=== PATIENT | female | born 1950 | race Caucasian/White ===

== ENCOUNTER 2017-11-01 02:56 | Outpatient (CLI) | payer MEDICARE, BC, SELFPAY ==
[2017-11-01 10:55] LABS: ALT 37 U/L (12-78); AST 23 U/L (15-37); Alkaline Phosphatase 95 U/L (46-116); Anion Gap 9.3 mmol/L (3-11); BUN 19 mg/dL (7-18); Bilirubin, Total 1.1 mg/dL (0.2-1.0); CO2 27.7 mmol/L (21.0-32.0); Calcium 9.5 mg/dL (8.5-10.1); Chloride 105 mmol/L (98-107); Cholesterol 202 mg/dL (50-200); Glucose 87 mg/dL (70-100); HDL Cholesterol 77 mg/dL (40-60); LDL CHOLESTEROL 116 mg/dL (<100); Potassium 4.6 mmol/L (3.5-5.1); Sodium 142 mmol/L (136-145); Total Protein 7.3 g/dL (6.4-8.2); Triglyceride 55 mg/dL (30-150)
== END 2017-11-01 02:57 ==
DX: E78.2 Mixed hyperlipidemia (principal); G47.00 Insomnia, unspecified; M19.90 Unspecified osteoarthritis, unspecified site; M85.80 Other specified disorders of bone density and structure, unspecified site; N95.2 Postmenopausal atrophic vaginitis; Z85.89 Personal history of malignant neoplasm of other organs and systems
CPT/HCPCS: 36415; 80053; 80061; 83721

== ENCOUNTER 2017-12-22 00:07 | Outpatient (CLI) | payer MEDICARE, BC, SELFPAY ==
--- NOTE | 2017-12-22 10:20 | DI.MAMMO_ITS ---
SYMPTOM/DIAGNOSIS: SCREENING, Z12.31 MAMMOGRAMS: Mammograms were interpreted according to the usual protocol including computer analysis with CAD system, tomosynthesis and C view imaging. Comparison with prior examinations. Breast density B. No masses or microcalcifications are seen. There is nothing to suggest malignancy. IMPRESSION: Negative mammogram. Routine screening is recommended. Category I. MQSA ASSESSMENT OF FINDINGS: Negative. Category 1. Patient will receive a letter notifying them of these results. BI-RADS category B. There are scattered areas of fibroglandular density.
== END 2017-12-22 00:27 ==
DX: Z12.31 Encounter for screening mammogram for malignant neoplasm of breast (principal)
CPT/HCPCS: 77063; 77067

== ENCOUNTER → 2018-08-17 08:56 | Outpatient (BNVA) | payer MEDICARE, BC, SELFPAY | PROVIDERS: Visit Provider Physical Therapy Assistant | DX: Z12.11 Encounter for screening for malignant neoplasm of colon (principal); Z83.71 Family history of colonic polyps ==

== ENCOUNTER 2018-08-21 10:06 | Day surgery (SDC) | payer MEDICARE, BC, SELFPAY ==
--- NOTE | 2018-08-21 06:26 | W.COLOREPORT ---
Date of service: 08/21/18 Time of Service: 11:03 Colonoscopy Report Date of procedure: 08/21/18 Pre-op diagnosis general: Hx of polyps and screening Post-op diagnosis procedure note: same (multiple polyps) Procedure: Colonoscopy with polypectomy with cold forceps Surgeon: Rubina Spencer Anesthesia proc note operative: other (General/ ASA 2/ k[place]lee Head, SARAH) Estimated blood loss (mL): 5 Pathology: other (Ascending colon polyp x3, descending colon polyp x1) Complications: None Disposition: same day Indications: Mrs. Wesley is a pleasant 68 year old female who was seen in the office for a repeat colonoscopy. Her last colonoscopy was in 2014 and she was noted to have 2 Tubular adenomas. Risks, benefits and complications have been reviewed. Complications include but are not limited to bleeding, pain, perforation, missed small lesion/polyp, sore throat, aspiration and adverse reaction to the medications. Questions were entertained and answered to their satisfaction and they wished to proceed. No guarantees were given or implied. Prep: Miralax/Dulcolax Procedure Start Time: 11:03 Procedure End Time: 11:29 Retraction Time: 18 Findings: Sessile and pedunculated polyps in the ascending colon and one pedunculated polyp in the descedning colon. Diverticulosis also noted throughout. Procedure Description: After informed consent was obtained the patient was taken to the procedure room and placed in a left decubitous position. Monitors were applied and a time out was done. The patients name, date of , procedure, allergies to medications and metal in their body was reviewed. The patient was then sedated. Once sedated and comfortable a rectal exam was done. External exam was normal. Internal exam revealed a normal sphincter tone and no palpable masses. The scope was then introduced and retro-flexed. No internal hemorrhoids, polyps or masses were identified. The scope was then advanced to the cecum without difficulty. The TI and appendiceal orifice were identified. The prep was adequate. The scope was then slowly retracted over 18 minutes back into the rectum. Polyps were removed with cold forceps in the ascending colon x3 and in the descending colon polyp x1. Bailey-diverticulosis was also noted. The scope was removed and the patient was woken up and taken back to Same day surgery in stable condition. The patient tolerated the procedure well and there were no immediate complications. Follow up: The patient should follow up in 3-5 years unless they develop changes in bowel habits or other new gastrointestinal complaints.
--- NOTE | 2018-08-21 06:28 | W.PM.DSUDISC ---
Discharge Plan Disposition Patient Disposition: HOME Condition: Good Discharge Details Reason For Visit: SCREENING and History of colon polyps Attending Provider: Rubina Spencer Primary Care Provider: Zayra Kim Home Meds and New Rx's Prescriptions: Continued eszopiclone [Lunesta] 2 mg tablet 2 mg PO HS PRNRF: 0 Metamucil 283 GM powder 1 tbs PO DAILY RF: 0 clobetasol 0.05 % cream 1 applic TP .COMPLEX Qty: 60 RF: 2 Discontinued polyethylene glycol 3350 17 gram/dose powder 238 g PO ONCE Qty: 238 RF: 0 bisacodyl [Dulcolax (bisacodyl)] 5 mg tablet,delayed release (DR/EC) 5 mg PO ONCE Qty: 4 RF: 0 Discharge Instructions Instructions: Colonoscopy (DC), Colorectal Polyps (DC), Diverticulosis (DC) Additional Instructions: Findings: 4 polyps Diverticulosis Follow up: 3-5 years Please call if you develop: fevers >101.5 Nausea or Vomiting Abdominal pain that is not transient DAY SURGERY UNIT POST COLONOSCOPY INSTRUCTIONS 1. Because there will be medication in your system for the next 24 hours, you may feel a little sleepy. Your coordination will be affected. Therefore: a. Do not drive or operate dangerous equipment for 24 hours. b. Do not drink alcohol beverages for 24 hours (not even beer). c. Plan to go home and rest for the day. 2. Generally there are no restrictions on your activity after a day or so has gone by, but you may feel a bit fatigued for a few days. 3 After you arrive home you may have a light meal and return to a normal diet as you can tolerate it without feeling sick to your stomach. 4. After surgery, you may feel pain or discomfort. This should be only transient, but if it persists please contact your doctor. 5. If there are any questions regarding the findings of your procedure, please feel free to contact your doctor. 6. If you are unable to contact your doctor with a problem, contact the hospital at [phone]. 7. Continue all your regular medications unless directed otherwise. I understand the above instructions and have no questions. Signature of Patient or Responsible Adult Escort Date/Time Name of Responsible Adult Escort Signature of Nurse Date/Time Activity:: Activity as Tolerated Diet:: High Fiber diet Discharge Orders Discharge Orders: Discharge Order (Routine); Ordered 08/21/18 Ordered By: Rubina Spencer DS: Diagnosis Discharge Diagnosis (1) S/P colonoscopy: Status: Acute (2) Colorectal polyps: Status: Acute (3) Diverticulosis: Status: Acute
[2018-08-21 10:24] VITALS: BP 143/92; PULSE 80; RESP 16; TEMP 36.3; O2SAT 98
[2018-08-21] MEDS: Lactated Ringers 1,000 ML 80 ML IV (11:00)
--- NOTE | 2018-08-21 11:14 | BOWEL_PTH ---
PATIENT: Tiny Wesley LOC: [facility] U#:[id number] AGE/SX: 68/F ROOM: RE08/21/[address]: Rubina Spencer MD : [id number] BED: DIS: 08/21/2018 SPEC #: [id number] RECD: 08/21/18 12:47 STATUS: GIRISH REQ #: [id number] MIKAL: 08/21/18 11:[address]: Rubina Spencer DEPT: Surgical Specimen RECD BY: Mary Jo Blanton ENTERED: 08/21/18 12:49 SP TYPE: Bowel OTHR DR: Zayra Kim APRN Tissues: 1 - BIOPSY BOWEL 2 - BIOPSY BOWEL Procedures: GROSS AND MICRO LEVEL 4 Comments: [id number]
[2018-08-21 12:05] VITALS: BP 130/83; PULSE 65; RESP 16; TEMP 36.3; O2SAT 100
== END 2018-08-21 12:35 | disposition home or self-care (01) ==
PROVIDERS: Visit Provider Surgery
PROC: 0DJD8ZZ Inspection of Lower Intestinal Tract, Via Natural or Artificial Opening Endoscopic (ICD-10-PCS; CPT 45378; principal; 2018-08-21 11:30)
DX: Z12.11 Encounter for screening for malignant neoplasm of colon (principal); D12.2 Benign neoplasm of ascending colon; D12.4 Benign neoplasm of descending colon; K57.30 Diverticulosis of large intestine without perforation or abscess without bleeding; Z86.010 Personal history of colon polyps
CPT/HCPCS: 45380; 88305

== ENCOUNTER 2018-11-01 04:17 | Outpatient (CLI) | payer MEDICARE, BC, SELFPAY ==
[2018-11-01 09:27] LABS: ALT 29 U/L (12-78); AST 24 U/L (15-37); Albumin 3.7 g/dL (3.4-5.0); Alkaline Phosphatase 94 U/L (46-116); Anion Gap 8.8 mmol/L (3-11); BUN 19 mg/dL (7-18); Bilirubin, Total 0.7 mg/dL (0.2-1.0); CO2 28.2 mmol/L (21.0-32.0); CREATININE 0.89 mg/dL (0.55-1.02); Calcium 9.4 mg/dL (8.5-10.1); Calculated LDL 91 mg/dL; Chloride 106 mmol/L (98-107); Cholesterol 184 mg/dL (50-200); Glucose 86 mg/dL (70-100); HDL Cholesterol 66 mg/dL (40-60); Potassium 4.6 mmol/L (3.5-5.1); Sodium 143 mmol/L (136-145); Total Protein 6.8 g/dL (6.4-8.2); Triglyceride 135 mg/dL (30-150)
== END 2018-11-01 04:37 ==
DX: E78.5 Hyperlipidemia, unspecified (principal); G47.00 Insomnia, unspecified; K57.90 Diverticulosis of intestine, part unspecified, without perforation or abscess without bleeding; M19.90 Unspecified osteoarthritis, unspecified site; Z85.89 Personal history of malignant neoplasm of other organs and systems
CPT/HCPCS: 36415; 80053; 80061; 83721

== ENCOUNTER 2018-12-21 06:50 | Outpatient (CLI) | payer MEDICARE, BC, SELFPAY ==
--- NOTE | 2018-12-21 15:36 | DI.MAMMO_ITS ---
EXAM: MAMMO SCREENING CLINICAL HISTORY: screening Z12.39. TECHNIQUE: Mammograms were interpreted according to the usual protocol including computer analysis w [employer] CAD system, tomosynthesis and C-view imaging. COMPARISON: Current examination is compared with previous examinations including December 2017 FINDINGS: Breasts are heterogeneously dense. No dominant mass or clumped microcalcification is identified in ei ther breast. Current examination is compared with previous examinations including December 2017 and ere has been no gross interval change in appearance in comparison with the previous studies. IMPRESSION: No specific evidence of malignancy at this time. Routine screening examinations are suggested at year ly intervals due to the family history breast carcinoma. Category 1, breast density category C. BI-RADS Cat 1 - Negative Breast Density - Category C - Heterogeneously dense
== END 2018-12-21 07:10 ==
DX: Z12.31 Encounter for screening mammogram for malignant neoplasm of breast (principal)
CPT/HCPCS: 77063; 77067

== ENCOUNTER 2019-11-13 03:22 | Outpatient (CLI) | payer MEDICARE, BC, SELFPAY ==
[2019-11-13 12:14] LABS: ALT 25 U/L (14-59); AST 16 U/L (15-37); Albumin 3.7 g/dL (3.4-5.0); Alkaline Phosphatase 91 U/L (46-116); Anion Gap 4.9 mmol/L (3-11); BUN 18 mg/dL (7-18); CO2 27.1 mmol/L (21.0-32.0); CREATININE 0.85 mg/dL (0.55-1.02); Calcium 9.7 mg/dL (8.5-10.1); Calculated LDL 93 mg/dL (<100); Chloride 110 mmol/L (98-107); Cholesterol 196 mg/dL (<200); Glucose 94 mg/dL (74-106); HDL Cholesterol 77 mg/dL (40-60); Potassium 4.3 mmol/L (3.5-5.1); Sodium 142 mmol/L (136-145); Total Protein 6.8 g/dL (6.4-8.2); Triglyceride 133 mg/dL (<150)
== END 2019-11-13 03:42 ==
DX: K57.90 Diverticulosis of intestine, part unspecified, without perforation or abscess without bleeding (principal); L57.0 Actinic keratosis; M19.90 Unspecified osteoarthritis, unspecified site; M85.80 Other specified disorders of bone density and structure, unspecified site; G47.00 Insomnia, unspecified; N95.2 Postmenopausal atrophic vaginitis
CPT/HCPCS: 36415; 80053; 80061

== ENCOUNTER 2019-12-25 00:50 | Outpatient (CLI) | payer MEDICARE, BC, SELFPAY ==
--- NOTE | 2019-12-25 15:19 | DI.MAMMO_ITS ---
EXAM: MG MAMMO SCREENING CLINICAL HISTORY: screening,Z12.39 TECHNIQUE: Mammograms were interpreted according to the usual protocol including computer analysis w [employer] CAD system, tomosynthesis and C-view imaging. COMPARISON: FINDINGS: The breasts are heterogeneously dense with asymmetrical distribution of fibroglandular tissue. No do minant mass or clumped microcalcification is identified in either breast. The current examination is compared with previous examinations including December 2018 and there has been no gross interval cabral ge in appearance in comparison with the prior studies. IMPRESSION: No specific evidence of malignancy at this time. Routine screening examinations are suggested at yea rly intervals due to the family history of breast carcinoma. BI-RADS Category 1 - Negative Breast Density - Category C - Heterogeneously dense
== END 2019-12-25 01:10 ==
DX: Z12.31 Encounter for screening mammogram for malignant neoplasm of breast (principal)
CPT/HCPCS: 77063; 77067

== ENCOUNTER 2020-06-20 01:40 | Outpatient (CLI) | payer MEDICARE, BC, SELFPAY ==
[2020-06-20 12:46] LABS: ALT 27 U/L (14-59); AST 20 U/L (15-37); Albumin 4.1 g/dL (3.4-5.0); Alkaline Phosphatase 107 U/L (46-116); Anion Gap 6.2 mmol/L (3-11); BUN 17 mg/dL (7-18); Bilirubin, Total 0.8 mg/dL (0.2-1.0); CO2 29.8 mmol/L (21.0-32.0); CREATININE 0.8 mg/dL (0.55-1.02); Calcium 9.8 mg/dL (8.5-10.1); Chloride 106 mmol/L (98-107); Glucose 84 mg/dL (74-106); Potassium 4.4 mmol/L (3.5-5.1); Sodium 142 mmol/L (136-145); Total Protein 7.5 g/dL (6.4-8.2)
== END 2020-06-20 01:41 | disposition home or self-care (01) ==
LOC: LOS 01:40
DX: G47.00 Insomnia, unspecified (principal); M19.09 Primary osteoarthritis, other specified site
CPT/HCPCS: 36415; 80053

== ENCOUNTER 2021-01-02 00:27 | Outpatient (CLI) | payer MEDICARE, BC, SELFPAY ==
--- NOTE | 2021-01-02 07:45 | DI.MAMMO_ITS ---
Exam(s) MAMMO SCREENING EXAM: MAMMO SCREENING CLINICAL HISTORY: screening,Z12.39 TECHNIQUE: Mammograms were interpreted according to the usual protocol including computer analysis w [employer] CAD system, tomosynthesis and C-view imaging. COMPARISON: 2011 through 2019 FINDINGS: The breasts are composed of heterogeneously dense fibroglandular densities, Breast Density category C . No suspicious masses or suspicious microcalcifications are seen. No skin thickening or abnormal axillary lymph nodes are seen. There has been no significant change from prior exams. IMPRESSION: BI-RADS Category 1, Negative mammogram. Yearly screening mammography is recommended. Breast Density Category C, heterogeneously Dense. The mammogram demonstrates the patient's breast tissue is dense. Dense breast tissue is very common a nd is not abnormal but dense breast tissue can make it harder to find cancer on a mammogram. Also, de nse breast tissue may increase breast cancer risk. This information about the result of the mammogram report was provided to the patient to raise their awareness. Use this report when you speak with the patient about their risks for breast cancer, which includes their family history. At that time, you may recommend additional screening tests (Ultrasound or MRI) as they might be useful based on their r isk. A negative radiographic report should not delay biopsy if a dominant or clinically suspicious mass is present. Up to ten percent of cancers are not identified on mammography. A negative report may reinforce clinical impression. Adenosis and dense breasts may obscure an underlying neoplasm. False positive reports average 6 to 10%.
== END 2021-01-02 00:47 ==
DX: Z12.31 Encounter for screening mammogram for malignant neoplasm of breast (principal)
CPT/HCPCS: 77063; 77067

== ENCOUNTER → 2022-01-05 03:04 | Outpatient (CLI) | payer MEDICARE, BC, SELFPAY ==
--- NOTE | 2022-01-05 07:00 | DI.MAMMO_ITS ---
Exam(s) MAMMO SCREENING EXAM: MAMMO SCREENING CLINICAL HISTORY: screening,Z12.39 TECHNIQUE: Bilateral full field digital CC and MLO mammographic images were obtained with 3D tomosyn thesis and utilizing computer aided detection (CAD). COMPARISON: Available for comparison. FINDINGS: Masses/Architectural Distortion: There is an asymmetric density in the posterior left breast seen on the CC view. This area should be further evaluated. Microcalcifications: No suspicious pleomorphic-type are seen. Skin Thickening/Nipple Retraction: None. IMPRESSION: 1. There is an asymmetric density in the posterior left breast seen on the craniocaudad view. 2. This area should be further evaluated with a spot compression view. Ultrasound may be indicated a t that time. BI-RADS Category 0 - Assessment Incomplete: Need additional imaging evaluation Breast Density - Category C - Heterogeneously dense Breast density category C or D implies that the patient has dense breast tissue. Dense breast tissue is very common and is not abnormal but dense breast tissue can make it harder to find cancer on a ma mmogram. Also, dense breast tissue may increase their breast cancer risk. This information about the result of the mammogram report was provided to the patient to raise their awareness. Use this report when you speak with the patient about their risks for breast cancer, which includes their family hist ory. At that time, you may recommend for more screening tests (Ultrasound or MRI) as they might be us eful based on their risk. A negative radiographic report should not delay biopsy if a dominant or clinically suspicious mass is present. Up to ten percent of cancers are not identified on mammography. A negative report may reinforce clinical impression. Adenosis and dense breasts may obscure an underlying neoplasm. False positive reports average 6 to 10%. Patient will receive a letter notifying them of these results.
== END ==
DX: Z12.31 Encounter for screening mammogram for malignant neoplasm of breast (principal); R92.8 Other abnormal and inconclusive findings on diagnostic imaging of breast
CPT/HCPCS: 77063; 77067

== ENCOUNTER → 2022-01-11 02:09 | Outpatient (CLI) | payer MEDICARE, BC, SELFPAY ==
--- NOTE | 2022-01-11 | DI.US_ITS ---
Exam(s) MG MAMMO SCREEN CALL BACK UNI US BREAST LT LIMITED EXAM: MG MAMMO SCREEN CALL BACK UNI CLINICAL HISTORY: F/U ABNL MAMMO, ASYMMETRIC DENSITY POSTERIOR LT BREAST. TECHNIQUE: Craniocaudal and mediolateral oblique spot compression digital Mammography views of the l eftbreast with Tomosynthesis and left breast ultrasound. COMPARISON: 2014 through recent exam of 05 January 2022. FINDINGS: Mammography/Tomosynthesis: Masses/Architectural Distortion: Area of nodularity posterior inferior left breast has a less nodular appearance on spot compression views. Microcalcifictions: No suspicious pleomorphic-type are seen. Skin Thickening/Nipple Retraction: None. Right breast US: Echotexture: Normal appearance of the glandular tissue. Shadowing: No suspicious foci. Cyst: None. Solid lesions: None seen. Ductal dilation: None. IMPRESSION: 1. No evidence of malignancy is noted. 2. Six-month follow-up mammogram is recommended. 3. The findings were discussed with the patient on the date of the examination. BI-RADS Category 3 - 6 month - Probably Benign Finding: Recommend follow-up mammography in 6 months Breast Density - Category C - Heterogeneously dense A mammogram that demonstrates density of C or D indicates the patient's breast tissue is dense. Dense breast tissue is very common and is not abnormal, but dense breast tissue can make it harder to find cancer on a mammogram. Also, dense breast tissue may increase their breast cancer risk. This informa tion about the result of the mammogram report was provided to the patient to raise their awareness. U se this report when you speak with the patient about their risks for breast cancer, which includes th eir family history. At that time, you may recommend for more screening tests (Ultrasound or MRI) as t hey might be useful based on their risk. A negative radiographic report should not delay biopsy if a dominant or clinically suspicious mass is present. Up to ten percent of cancers are not identified on mammography. A negative report may reinforce clinical impression. Adenosis and dense breasts may obscure an underlying neoplasm. False positive reports average 6 to 10%. Patient will receive a letter notifying them of these results.
== END ==
DX: Z12.31 Encounter for screening mammogram for malignant neoplasm of breast (principal); R92.8 Other abnormal and inconclusive findings on diagnostic imaging of breast; N64.59 Other signs and symptoms in breast
CPT/HCPCS: 76642; 77063; 77067

== ENCOUNTER 2022-07-21 01:58 | Outpatient (CLI) | payer MEDICARE, BC, SELFPAY ==
--- NOTE | 2022-07-21 14:11 | DI.MAMMO_ITS ---
Exam(s) MAMMO DIAGNOSTIC UNI EXAM: MAMMO DIAGNOSTIC UNI CLINICAL HISTORY: 3-6 mo f/u,F/U MAMMO, R92.8, Z09,NODULARITY. TECHNIQUE: Craniocaudal and mediolateral oblique Full Field Digital Mammography views of the left br east with Computer Aided Diagnosis followed by Tomosynthesis. COMPARISON: Comparison is made with prior examinations. FINDINGS: Mammography/Tomosynthesis: Masses/Architectural Distortion: None seen. Microcalcifictions: No suspicious pleomorphic-type are seen. Skin Thickening/Nipple Retraction: None. IMPRESSION: 1. No evidence of malignancy is noted. 2. Unless there is more urgent need, follow-up screening mammography is recommended, as per [place] [employer] guidelines. 3. The findings were discussed with the patient on the date of the examination. BI-RADS Category 1 - Negative Breast Density - Category C - Heterogeneously dense Breast density Category C or D implies that the patient has dense breast tissue. Dense breast tissue can make it harder to find cancer on a mammogram. Dense breast tissue is also associated with an incr eased risk of breast cancer. This information about the result of the mammogram report was provided to the patient to raise their awareness. Use this report when you speak with the patient about their risks for breast cancer, which includes their family history. At that time, you may recommend additional screening tests (Ultrasoun d or MRI) as these tests may add significant information. A negative radiographic report should not delay biopsy if a dominant or clinically suspicious mass is present. Up to ten percent of cancers are not identified on mammography. A negative report may reinforce clinical impression. Adenosis and dense breasts may obscure an underlying neoplasm. False positive reports average 6 to 10%. Patient will receive a letter notifying them of these results.
== END 2022-07-21 02:18 ==
LOC: DI 01:58
PROVIDERS: PCP Nurse Practitioner Family
DX: R92.8 Other abnormal and inconclusive findings on diagnostic imaging of breast (principal); Z09 Encounter for follow-up examination after completed treatment for conditions other than malignant neoplasm
CPT/HCPCS: 77061; 77065; G0279

== ENCOUNTER 2022-08-31 02:08 | Outpatient (CLI) | payer MEDICARE, BC, SELFPAY ==
[2022-08-31 08:27] LABS: ALT 31 U/L (14-59); AST 25 U/L (15-37); Albumin 3.8 g/dL (3.4-5.0); Alkaline Phosphatase 82 U/L (46-116); Anion Gap 6.4 mmol/L (3-11); BUN 19 mg/dL (7-18); CO2 28.6 mmol/L (21.0-32.0); CREATININE 0.9 mg/dL (0.55-1.02); Calcium 9.3 mg/dL (8.5-10.1); Calculated LDL 73 mg/dL (<100); Chloride 103 mmol/L (98-107); Cholesterol 160 mg/dL (<200); Estimated GFR 67.92 (mL/min/1.73m2); Glucose 94 mg/dL (74-106); HDL Cholesterol 79 mg/dL (40-60); Potassium 4.4 mmol/L (3.5-5.1); Sodium 138 mmol/L (136-145); Total Protein 7.5 g/dL (6.4-8.2); Triglyceride 41 mg/dL (<150)
== END 2022-08-31 02:09 | disposition home or self-care (01) ==
PROVIDERS: PCP Nurse Practitioner Family; Visit Provider Nurse Practitioner Family
DX: E78.5 Hyperlipidemia, unspecified (principal); I10 Essential (primary) hypertension
CPT/HCPCS: 36415; 80053; 80061

== ENCOUNTER → 2023-01-10 03:04 | Outpatient (CLI) | payer MEDICARE, BC, SELFPAY ==
--- NOTE | 2023-01-10 12:27 | DI.MAMMO_ITS ---
Exam(s) MAMMO SCREENING EXAM: MAMMO SCREENING CLINICAL HISTORY: screening,z12.39. TECHNIQUE: Bilateral full field digital CC and MLO mammographic images were obtained with 3D tomosyn thesis and utilizing computer aided detection (CAD). COMPARISON: Prior mammograms were reviewed. Most recent was diagnostic left breast mammogram August 07. Prior left breast ultrasound of the 01/11/2022 was also reviewed. FINDINGS: In the left breast the previously described asymmetric density posteriorly remains unchanged There are no new spiculated masses nor malignant appearing microcalcification groups. There is no significant architectural distortion nor skin thickening-retraction. IMPRESSION: No radiographic evidence of malignancy. Stable benign-appearing findings. BI-RADS Category 2 - Benign Findings Breast Density - Category C - Heterogeneously dense Breast density Category C or D implies that the patient has dense breast tissue. Dense breast tissue can make it harder to find cancer on a mammogram. Dense breast tissue is also associated with an incr eased risk of breast cancer. This information about the result of the mammogram report was provided to the patient to raise their awareness. Use this report when you speak with the patient about their risks for breast cancer, which includes their family history. At that time, you may recommend additional screening tests (Ultrasoun d or MRI) as these tests may add significant information. A negative radiographic report should not delay biopsy if a dominant or clinically suspicious mass is present. Up to ten percent of cancers are not identified on mammography. A negative report may reinforce clinical impression. Adenosis and dense breasts may obscure an underlying neoplasm. False positive reports average 6 to 10%. Patient will receive a letter notifying them of these results.
== END ==
PROVIDERS: PCP Nurse Practitioner Family; Visit Provider Nurse Practitioner Family
DX: Z12.31 Encounter for screening mammogram for malignant neoplasm of breast (principal)
CPT/HCPCS: 77063; 77067

== ENCOUNTER 2023-07-20 05:32 | Outpatient (CLI) | payer MEDICARE, BC, SELFPAY ==
[2023-07-20 08:55] LABS: ALT 36 U/L (14-59); AST 23 U/L (15-37); Albumin 4.3 g/dL (3.4-5.0); Alkaline Phosphatase 89 U/L (46-116); Anion Gap 9.6 mmol/L (3-11); BUN 15 mg/dL (7-18); Bilirubin, Total 1.1 mg/dL (0.2-1.0); CO2 29.4 mmol/L (21.0-32.0); CREATININE 0.9 mg/dL (0.55-1.02); Calcium 9.9 mg/dL (8.5-10.1); Calculated LDL 58 mg/dL (<100); Chloride 103 mmol/L (98-107); Cholesterol 161 mg/dL (<200); Glucose 94 mg/dL (74-106); HDL Cholesterol 94 mg/dL (40-60); Potassium 4.5 mmol/L (3.5-5.1); Sodium 142 mmol/L (136-145); Total Protein 7.9 g/dL (6.4-8.2); Triglyceride 45 mg/dL (<150)
== END 2023-07-20 05:33 | disposition home or self-care (01) ==
PROVIDERS: PCP Nurse Practitioner Family; Visit Provider Nurse Practitioner Family
DX: E78.5 Hyperlipidemia, unspecified (principal)
CPT/HCPCS: 36415; 80053; 80061

== ENCOUNTER 2023-07-26 13:46 | Outpatient (REF) | payer MEDICARE, BC, SELFPAY ==
[2023-07-26 20:38] LABS: MCH 31.9 pg (27.0-33.0); MCHC 34.1 % (32.0-36.0); MCV 94 fL (80-95); MPV 10.2 fL (8.0-11.0); Platelet Count 324 10^3/uL (130-400); RDW 12.7 % (11.7-14.6); RDW-SD 43.6 fL; WBC 7.38 10^3/uL (4.4-10.8)
[2023-07-26 21:00] LABS: ALT 33 U/L (14-59); AST 22 U/L (15-37); Alkaline Phosphatase 87 U/L (46-116); Anion Gap 9.9 mmol/L (3-11); BUN 16 mg/dL (7-18); Bilirubin, Total 0.7 mg/dL (0.2-1.0); CO2 27.1 mmol/L (21.0-32.0); CREATININE 0.8 mg/dL (0.55-1.02); Calcium 9.6 mg/dL (8.5-10.1); Chloride 106 mmol/L (98-107); Estimated GFR 77.75 (mL/min/1.73m2); Glucose 79 mg/dL (74-106); Potassium 4.3 mmol/L (3.5-5.1); Sodium 143 mmol/L (136-145); TSH (W/Ref FT4) 1.65 uIU/mL (0.36-3.74); Total Protein 7.1 g/dL (6.4-8.2)
[2023-07-27 20:30] LABS: Hepatitis C Ab w Rflx HCV PCR Negative (Negative)
[2023-07-27 20:33] LABS: HIV-1/2 Ag & Ab Screen Negative (Negative)
== END 2023-07-26 13:47 | disposition home or self-care (01) ==
LOC: LBN 13:46
PROVIDERS: PCP Nurse Practitioner Family; Visit Provider Nurse Practitioner Family
DX: R53.83 Other fatigue (principal); Z11.59 Encounter for screening for other viral diseases; Z11.4 Encounter for screening for human immunodeficiency virus [HIV]
CPT/HCPCS: 80053; 85027; 86803; 87389; 84443

== ENCOUNTER → 2023-08-12 01:01 | Outpatient (CLI) | payer MEDICARE, BC, SELFPAY ==
--- NOTE | 2023-08-12 07:15 | DI.DEXA_ITS ---
Exam(s) XR DEXA BONE DENSITY W/WO RENO EXAM: XR DEXA BONE DENSITY W/WO RENO CLINICAL HISTORY: screening for osteoporosis in postmenopausal woman,z78.0 TECHNIQUE: [employer] C densitometer analysis of left hip, lumbar spine and left forearm. Lat eral survey image of the thoracic and lumbar spine. COMPARISON: DX DEXA BONE DENSITY WITH RENO from 11/02/2016 FINDINGS: Lateral view of the thoracic and lumbar spine shows no evidence of compression fractures. Bone mineral density measurements of the lumbar spine correspond to a total T-score of -2.6, in the osteoporotic range. This is not significantly changed from the prior exam. Bone mineral density measurements of the left hip correspond to a total T-score of -2.0. This is a 3 .5 percent decrease from the prior exam. . The femoral neck T-score is -2.6, in the mildly osteopo rotic range. The femoral neck T-score measured -2.3 on the prior exam.. Theleft forearm bone mineral density measurements correspond to a T-score of the distal 3rd of -2.3, in the osteopenic range. This represents a 3.1 percent decrease from 2017.. 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 Osteopenia of the forearm.
== END ==
PROVIDERS: PCP Nurse Practitioner Family; Visit Provider Nurse Practitioner Family
DX: Z78.0 Asymptomatic menopausal state (principal); Z13.820 Encounter for screening for osteoporosis; M81.0 Age-related osteoporosis without current pathological fracture
CPT/HCPCS: 77080

== ENCOUNTER 2023-12-24 11:33 | Emergency (ER) | payer MEDICARE, BC, SELFPAY ==
[2023-12-24 11:34] VITALS: BP 157/96; PULSE 56; RESP 14; TEMP 36.5; O2SAT 98
--- NOTE | 2023-12-24 11:53 | ED.GENADUL_ITS ---
Discharge Plan Disposition Patient Disposition: Home Condition: Stable Discharge Details Clinical Impression: Laceration of left index finger Primary Care Provider: Marshal Rodriguez ED Provider: Boogie Valenzuela Home Meds and New Rx's Prescriptions: Continued calcium-vitamin D3-vitamin K 500-200-40 mg-unit-mcg tablet 1 tab PO DAILY rosuvastatin 5 mg tablet 5 mg PO HS Qty: 90 3RF eszopiclone [Lunesta] 2 mg tablet 2 mg PO HS PRN (Reason: insomnia) Qty: 30 1RF clobetasol 0.05 % cream 1 applic TP .COMPLEX Qty: 60 2RF Rx Instructions: 1 applic TP to perineal area 2x per week; Centrum Silver 0.4 mg-300 mcg- 250 mcg tablet 1 tab PO DAILY Discontinued omega-3 fatty acids [Fish Oil Concentrate] 1,000 mg capsule 1,000 mg PO DAILY Discharge Instructions Additional Instructions: Return in 7 to 10 days for evaluation for suture removal. Return sooner if signs of infection develop such as spreading redness away from the wound or yellow-white discharge from the wound. Try to keep the wound clean if it becomes dirty you can gently clean with soap and water. HPI General Mode of arrival: ambulatory . Date/Time Provider Initiated Documentation: 12/24/23 11:39 . Limitations to Documentation: no limitations . Information obtained by: patient . History of Present Illness 73 year old F presents to the emergency department with the chief complaint of left index finger lac, described as moderate, Quality is described as aching, and is localized to the left and upper extremity. Patient reports no radiation. Patient started experiencing this hour(s) (1) and it has been constant. No relieving factors improve symptom(s), No exacerbating factors reported . Patient notes no other symptoms.. Patient did receive the following treatments prior to arrival, none Related Data Home Medications ?Medication ?Instructions ?Recorded ?Confirmed calcium-vitamin D3-vitamin K 500 1 tab PO DAILY 11/08/18 12/24/23 mg-200 unit-40 mcg tablet clobetasol 0.05 % topical cream 1 applic topical .COMPLEX lichen 12/15/22 12/24/23 sclerosis #60 grams eszopiclone 2 mg tablet (Lunesta) 2 mg PO HS PRN insomnia #30 tabs 07/26/23 12/24/23 rosuvastatin 5 mg tablet 5 mg PO HS #90 tabs 07/26/23 12/24/23 uinxcrjf-[id number] acid 0.4 1 tab PO DAILY 12/24/23 12/24/23 mg-lycopene 300 mcg-lutein 250 mcg tablet (Centrum Silver) Previous Rx's ?Medication ?Instructions ?Recorded clobetasol 0.05 % topical cream 1 applic topical .COMPLEX lichen 12/15/22 sclerosis #60 grams eszopiclone 2 mg tablet (Lunesta) 2 mg PO HS PRN insomnia #30 tabs 07/26/23 rosuvastatin 5 mg tablet 5 mg PO HS #90 tabs 07/26/23 Allergies Allergy/AdvReac Type Severity Reaction Status Date / Time No Known Allergies Allergy Verified 12/24/23 11:38 General Stated Complaint: Laceration HERMAN: 4 Review of Systems All systems reviewed & are unremarkable except as noted in HPI and below Constitutional Constitutional: Denies chills, Denies fever(s) and Denies weakness Cardiovascular Cardiovascular: Denies chest pain and Denies dyspnea Respiratory Respiratory: Denies cough and Denies dyspnea Gastrointestinal Gastrointestinal: Denies abdominal pain, Denies nausea and Denies vomiting Musculoskeletal Musculoskeletal: Denies joint swelling Neurologic Neurologic: Denies weakness Exam Const General: no acute distress Orientation: alert [facility] Head: normal to inspection Ears: external ears normal General nose exam: external nose normal Mouth: moist mucous membranes Eyes General: appearance normal, both eyes and all related structures Neck Neck: normal visual inspection Resp Effort & Inspection: normal respiratory effort and able to speak in complete sentences Cardio Rate: regular rate Skin General skin exam: no rashes or lesions noted Neuro General: patient alert and patient oriented x3 Extrem General: full ROM and capillary refill normal Psych Mental Status: mental status grossly normal Course Vital Signs Vital signs: Vital Signs Temperature 36.5 C 12/24/23 11:34 Pulse 56 L 12/24/23 11:34 Respiratory Rate 14 12/24/23 11:34 Blood Pressure 157/96 H 12/24/23 11:34 Pulse Oximetry 98 12/24/23 11:34 Temperature 36.5 C 12/24/23 11:34 Temperature Source Oral 12/24/23 11:34 Pulse 56 L 12/24/23 11:34 Respiratory Rate 14 12/24/23 11:34 Blood Pressure 157/96 H 12/24/23 11:34 Pulse Oximetry 98 12/24/23 11:34 Oxygen Delivery Method Room Air 12/24/23 11:34 Oxygen Flow Rate 0 12/24/23 11:34 Pain Level 1 12/24/23 11:34 Medical Decision Making 73-year-old female comes in with a left index finger laceration. She was g ardening and holding some plants with her hand and with her other hand was using a saw that slipped and cut the posterior proximal left index finger. She did not fall or sustain other injuries. She has a 2 cm laceration that runs horizontally between the MCP and PIP joint of the left index finger. It is superficial, she is full range of motion at the joints. Intact sensation and cap refill. No findings on exam to suggest neurovascular or tendon injury. Wound will require sutures, she has no bony tenderness so do not feel x-rays are indicated as she unlikely has a fracture. Differential Diagnosis Differential Diagnosis: lac, abrasion Quality:SDOH Health Related Social Needs: No Data to Display PFSH All Active Problems (Updated 12/24/23 @ 12:18 by Boogie Valenzuela MD) Laceration of left index finger (Acute) Pelvic floor dysfunction (Acute) Fatigue (Acute) Flat foot [pes planus] (acquired), unspecified foot (Acute) Hyperlipidemia (Acute) Hypertension (Chronic) Abnormality of left breast on screening mammogram (Acute) Skin lesion (Acute) Patella-femoral syndrome (Acute) Diverticulosis (Acute ~08/21/18) Colorectal polyps (Acute ~08/21/18) S/P colonoscopy (Acute ~08/21/18) H/O colonoscopy (Chronic) colonoscopy 08/21/14, [facility], tubular adenoma x 2 with recommendation to repeat in 3-5 Dry skin dermatitis (Chronic) Immunization not carried out (Acute) Requesting PCV 13. She is aware that her insurance most likely will not cover the vaccine. Rx sent to pharmacy. Osteopenia (Acute 11/17/10) Osteoarthritis (Acute 11/17/10) Insomnia (Acute 11/17/10) History of squamous cell carcinoma (Acute 10/27/17) Colon polyp (Acute 08/21/14) tubular adenoma (sessile) x2 ([facility]) Atrophic vaginitis (Acute 11/17/10) Most likely a combination of vaginal atrophy and lichen sclerosis. Moderate response to clobetasol cream daily use ?3 weeks. She would like to avoid estrogen cream if possible. We will continue with 3 weeks on 1 week off of clobetasol treatment until her symptoms have resolved and then she will move to 2 times per week treatment. I encouraged her to call with any questions or concerns. Otherwise, we will reevaluate in 3 months at her annual exam. Actinic keratosis (Acute 02/26/12) Medical History Former smoker, stopped smoking in distant past Encounter for annual physical exam Elevated heart rate with elevated blood pressure without diagnosis of hypertension Surgical History History of melanoma excision Skin Cancer Removal 05/09/17 [facility] Family History Mother , 105 Essential hypertension Hyperlipidemia Heart disease Parkinson's disease Father , 89 Diabetes Heart disease Hyperlipidemia Parkinson's disease Lung cancer Maternal Grandfather , 92 No problems noted. Paternal Grandfather , 50? Cancer Grandmother , 92 No problems noted. Paternal Grandmother , 64 No problems noted. Son No problems noted. Daughter No problems noted. Sister Adopted Social History Smoking/Tobacco Use Status: Former Tobacco Use Quit Date: 03/21/74 Tobacco: How many years used: 2 Smokeless tobacco user: chewing tobacco Second Hand Exposure: Yes Smoking risk assessment performed?: Yes Alcohol Intake: current Alcohol Intake frequency: 0-2 drinks per day Alcohol type: wine Drug use: Never Substance use type: does not use Counseling given: No Counseling provided: none Caregiver/Support person: No Household members: spouse Housing: house Communication Needs: None Do you need help understanding health information?: Rarely Pets and animals: No Sexually active: Yes Do you think of yourself as: straight/heterosexual Current gender identity: female What is your relationship status?: How often do you talk on the phone with friends or family?: twice per week How often do you get together with friends or relatives?: three or more times per week How often do you attend oriental orthodox or sikhism services?: 1-3 times per year Do you belong to any clubs or organized social groups?: no Panel score (0-1 are the most socially isolated patients): 2 What type of physical activity do you participate in: walking Duration: 30-45 minutes/day Frequency: 5-6 times per week Krista/Sabianism: Islam Special krista needs: No Seatbelt use: always Helmet use: Yes Helmet use: always Drive intox or ride w/intox parts delivery driver: No Do you feel safe at home: Yes Do you feel safe in your relationship?: Yes
== END 2023-12-24 12:35 | disposition home or self-care (01) ==
PROVIDERS: Emergency Provider Emergency Medicine; PCP Nurse Practitioner Family
DX: S61.211A Laceration without foreign body of left index finger without damage to nail, initial encounter (principal); Z87.891 Personal history of nicotine dependence; W27.0XXA Contact with workbench tool, initial encounter; Y93.H2 Activity, gardening and landscaping; Y92.017 Garden or yard in single-family (private) house as the place of occurrence of the external cause
CPT/HCPCS: 12001; 99283

== ENCOUNTER 2024-01-12 02:05 | Outpatient (CLI) | payer MEDICARE, BC, SELFPAY ==
--- NOTE | 2024-01-12 06:45 | DI.MAMMO_ITS ---
Exam(s) MAMMO SCREENING EXAM: MAMMO SCREENING CLINICAL HISTORY: screening,Z12.39. TECHNIQUE: Bilateral full field digital CC and MLO mammographic images were obtained with 3D tomosyn thesis and utilizing computer aided detection (CAD). COMPARISON: Prior mammograms were reviewed. Prior left breast ultrasound December 2021 also reviewed. FINDINGS: There has been no significant change in the appearance and distribution of the fibroglandular tissue. Asymmetric density seen laterally in the right breast and posteriorly in left breast remain unchanged . There are no new spiculated masses nor malignant appearing microcalcification groups. There is no significant architectural distortion nor skin thickening-retraction. IMPRESSION: No radiographic evidence of malignancy. Stable benign-appearing findings. BI-RADS Category 2 - Benign Findings Breast Density - Category B - Scattered areas of fibroglandular density Breast density Category C or D implies that the patient has dense breast tissue. Dense breast tissue can make it harder to find cancer on a mammogram. Dense breast tissue is also associated with an incr eased risk of breast cancer. This information about the result of the mammogram report was provided to the patient to raise their awareness. Use this report when you speak with the patient about their risks for breast cancer, which includes their family history. At that time, you may recommend additional screening tests (Ultrasoun d or MRI) as these tests may add significant information. A negative radiographic report should not delay biopsy if a dominant or clinically suspicious mass is present. Up to ten percent of cancers are not identified on mammography. A negative report may reinforce clinical impression. Adenosis and dense breasts may obscure an underlying neoplasm. False positive reports average 6 to 10%. Patient will receive a letter notifying them of these results.
== END 2024-01-12 02:25 ==
LOC: DI 02:05
PROVIDERS: PCP Nurse Practitioner Family; Visit Provider Nurse Practitioner Family
DX: Z12.31 Encounter for screening mammogram for malignant neoplasm of breast (principal)
CPT/HCPCS: 77063; 77067

== ENCOUNTER 2024-07-31 03:42 | Outpatient (CLI) | payer MEDICARE, BC, SELFPAY ==
[2024-07-31 08:46] LABS: ALT 42 U/L (14-59); AST 26 U/L (15-37); Alkaline Phosphatase 94 U/L (46-116); Anion Gap 4.2 mmol/L (3-11); BUN 19 mg/dL (7-18); CO2 30.8 mmol/L (21.0-32.0); CREATININE 0.9 mg/dL (0.55-1.02); Chloride 105 mmol/L (98-107); Estimated GFR 67.08 (mL/min/1.73m2); Glucose 97 mg/dL (74-106); Potassium 4.4 mmol/L (3.5-5.1); Sodium 140 mmol/L (136-145); Total Protein 7.7 g/dL (6.4-8.2)
[2024-07-31 21:11] LABS: Calculated LDL 61 mg/dL (<100); Cholesterol 157 mg/dL (<200); HDL Cholesterol 76 mg/dL (>or=50); Triglyceride 100 mg/dL (<150)
== END 2024-07-31 03:43 | disposition home or self-care (01) ==
LOC: LBO 03:42
PROVIDERS: PCP Nurse Practitioner Family; Visit Provider Nurse Practitioner Family
DX: E78.5 Hyperlipidemia, unspecified (principal)
CPT/HCPCS: 36415; 80053; 80061

== ENCOUNTER 2024-08-06 14:27 | Outpatient (CLI) | payer MEDICARE, BC, SELFPAY ==
--- NOTE | 2024-08-06 14:15 | DI.RAD_ITS ---
Exam(s) XR WRIST LT COMPLETE EXAM: XR WRIST LT COMPLETE CLINICAL HISTORY: eval L wrist frx. TECHNIQUE: 2D digital imaging was performed of the left wrist. Three images were obtained. PA, obl ique and lateral views were obtained. COMPARISON: CR XR WRIST (LEFT) from 08/02/2024 FINDINGS: The patient's wrist is in a cast. BONES: There has been no change in the alignment of the ulnar styloid process fracture. There is a s table alignment of the fracture of the distal metaphysis of the left radius. No bony destructive les ion is seen. JOINTS: The carpal bones are normally aligned. There is moderate arthrosis of the 1st carpometacarpal joint. SOFT TISSUE: Normal. IMPRESSION: No change in alignment of the distal radial and ulnar fractures. DATA REPOSITORY: RADIATION DOSE DELIVERED:
== END 2024-08-06 14:28 | disposition home or self-care (01) ==
LOC: DIORS 14:27
PROVIDERS: PCP Nurse Practitioner Family; Referring Provider Nurse Practitioner Family; Visit Provider Student in an Organized Health Care Education/Training Program
DX: S52.502A Unspecified fracture of the lower end of left radius, initial encounter for closed fracture (principal); W01.0XXA Fall on same level from slipping, tripping and stumbling without subsequent striking against object, initial encounter; Y93.01 Activity, walking, marching and hiking; Y92.009 Unspecified place in unspecified non-institutional (private) residence as the place of occurrence of the external cause
CPT/HCPCS: 99213; 29075; 73110

== ENCOUNTER 2024-08-16 09:40 | Outpatient (CLI) | payer MEDICARE, BC, SELFPAY ==
--- NOTE | 2024-08-16 09:02 | DI.RAD_ITS ---
Exam(s) XR WRIST LT COMPLETE EXAM: XR WRIST LT COMPLETE CLINICAL HISTORY: F/U L DISTAL RAD FX. TECHNIQUE: 2D digital imaging was performed. COMPARISON: CR XR WRIST (LEFT) from 08/02/2024 FINDINGS: Three in cast views There is stable position alignment of the fracture site of the distal radius and ulnar styloid proces s. No significant ulnar variance. IMPRESSION: No change in alignment. DATA REPOSITORY: RADIATION DOSE DELIVERED:
== END 2024-08-16 09:41 | disposition home or self-care (01) ==
LOC: DIORS 09:41
PROVIDERS: PCP Nurse Practitioner Family; Referring Provider Nurse Practitioner Family; Visit Provider Physician Assistant
DX: S52.502D Unspecified fracture of the lower end of left radius, subsequent encounter for closed fracture with routine healing (principal); X58.XXXD Exposure to other specified factors, subsequent encounter
CPT/HCPCS: 99213; 73110

== ENCOUNTER 2024-09-03 13:33 | Outpatient (CLI) | payer MEDICARE, BC, SELFPAY ==
--- NOTE | 2024-09-03 11:15 | DI.RAD_ITS ---
Exam(s) XR WRIST LT LIMITED EXAM: XR WRIST LT LIMITED CLINICAL HISTORY: eval L wrist frx. TECHNIQUE: 2D digital imaging was performed of the left wrist. Two images were obtained. PA and lateral views were obtained. COMPARISON: CR XR WRIST (LEFT) from 08/02/2024 CR XR WRIST LT COMPLETE from 08/06/2024 CR XR WRIST LT COMPLETE from 08/16/2024 FINDINGS: BONES: There has been no change in alignment of the distal left radial metaphyseal fracture. Fracture line is still visualized. There is also a displaced ulnar styloid process fracture. No bony destructive lesion is seen. JOINTS: The carpal bones are normally aligned. Degenerative changes are seen in the wrist, particularly at the 1st CMC joint. SOFT TISSUE: Normal. IMPRESSION: Stable distal radial fracture. Ulnar styloid process fracture. DATA REPOSITORY: RADIATION DOSE DELIVERED:
== END 2024-09-03 13:34 | disposition home or self-care (01) ==
LOC: DIORS 13:33
PROVIDERS: PCP Nurse Practitioner Family; Referring Provider Nurse Practitioner Family; Visit Provider Student in an Organized Health Care Education/Training Program
DX: S52.502D Unspecified fracture of the lower end of left radius, subsequent encounter for closed fracture with routine healing (principal); X58.XXXD Exposure to other specified factors, subsequent encounter
CPT/HCPCS: 99213; 73100

== ENCOUNTER 2024-10-01 13:17 | Outpatient (CLI) | payer MEDICARE, BC, SELFPAY ==
--- NOTE | 2024-10-01 12:45 | DI.RAD_ITS ---
Exam(s) XR WRIST LT LIMITED EXAM: XR WRIST LT LIMITED CLINICAL HISTORY: F/U L DISTAL RADIUS. TECHNIQUE: 2D digital imaging was performed of the left wrist. Two images were obtained. PA and lateral views were obtained. COMPARISON: CR XR WRIST LT LIMITED from 09/03/2024 FINDINGS: BONES: There is stable alignment of the distal left radial metaphyseal fracture. The displaced ulnar styloid process fracture is stable. The bones are osteopenic. No bony destructive lesion is seen. JOINTS: There is widening of the scapholunate distance suspicious for ligament tear. Degenerative changes are seen in the wrist particularly the 1st carpometacarpal joint. SOFT TISSUE: Normal. IMPRESSION: Stable alignment of the distal radial and ulnar fractures. Widening of the scapholunate distance suggesting ligament tear. DATA REPOSITORY: RADIATION DOSE DELIVERED:
== END 2024-10-01 13:18 | disposition home or self-care (01) ==
LOC: DIORS 13:17
PROVIDERS: PCP Nurse Practitioner Family; Referring Provider Nurse Practitioner Family; Visit Provider Student in an Organized Health Care Education/Training Program
DX: S52.502D Unspecified fracture of the lower end of left radius, subsequent encounter for closed fracture with routine healing (principal); W19.XXXD Unspecified fall, subsequent encounter
CPT/HCPCS: 99213; 73100

== ENCOUNTER 2024-10-29 14:18 | Outpatient (CLI) | payer MEDICARE, BC, SELFPAY ==
--- NOTE | 2024-10-29 14:00 | DI.RAD_ITS ---
Exam(s) XR WRIST LT LIMITED EXAM: XR WRIST LT LIMITED CLINICAL HISTORY: F/U L DISTAL RADIUS FX. TECHNIQUE: 2D digital imaging was performed of the left wrist. Two images were obtained. Scaphoid, PA, oblique and lateral views were obtained. COMPARISON: CR XR WRIST LT LIMITED from 10/01/2024 FINDINGS: BONES: There has been continued healing of the distal left radial fracture. The displaced ulnar styloid process fracture is unchanged. No bony destructive lesion is seen. JOINTS: There is unchanged widening of the scapholunate distance. Degenerative changes are seen in the wrist particularly at the 1st CMC joint characterized by joint space narrowing and osteophytes. SOFT TISSUE: Normal. IMPRESSION: Stable appearance of the left wrist. DATA REPOSITORY: RADIATION DOSE DELIVERED:
== END 2024-10-29 14:19 | disposition home or self-care (01) ==
LOC: DIORS 14:18
PROVIDERS: PCP Nurse Practitioner Family; Referring Provider Nurse Practitioner Family; Visit Provider Student in an Organized Health Care Education/Training Program
DX: S52.502D Unspecified fracture of the lower end of left radius, subsequent encounter for closed fracture with routine healing (principal); X58.XXXD Exposure to other specified factors, subsequent encounter
CPT/HCPCS: 99212; 73100

== ENCOUNTER 2024-12-19 03:28 | Outpatient (CLI) | payer MEDICARE, BC, SELFPAY ==
--- NOTE | 2024-12-19 08:25 | DI.MAMMO_ITS ---
Exam(s) MAMMO SCREENING EXAM: MAMMO SCREENING CLINICAL HISTORY: screening,z12.39 TECHNIQUE: Mammograms were interpreted according to the usual protocol including computer analysis with CAD system, tomosynthesis and C-view imaging. COMPARISON: 2015 through 2023 FINDINGS: The breasts are composed of scattered fibroglandular densities, Breast Density category B. No suspicious masses or suspicious microcalcifications are seen. No skin thickening or abnormal axillary lymph nodes are seen. There has been no significant change from prior exams. IMPRESSION: BI-RADS Category 1, Negative mammogram Yearly screening mammography is recommended. Breast Density - Category B - There are scattered areas of fibroglandular density. Breast density Category C or D implies that the patient has dense breast tissue. Dense breast tissue can make it harder to find cancer on a mammogram. Dense breast tissue is also associated with an increased risk of breast cancer. This information about the result of the mammogram report was provided to the patient to raise their awareness. Use this report when you speak with the patient about their risks for breast cancer, which includes their family history. At that time, you may recommend additional screening tests (Ultrasound or MRI) as these tests may add significant information. A negative radiographic report should not delay biopsy if a dominant or clinically suspicious mass is present. Up to ten percent of cancers are not identified on mammography. A negative report may reinforce clinical impression. Adenosis and dense breasts may obscure an underlying neoplasm. False positive reports average 6 to 10%. Patient will receive a letter notifying them of these results.
== END 2024-12-19 03:48 ==
LOC: DI 03:28
PROVIDERS: PCP Nurse Practitioner Family; Visit Provider Nurse Practitioner Family
DX: Z12.31 Encounter for screening mammogram for malignant neoplasm of breast (principal); R92.323 Mammographic fibroglandular density, bilateral breasts
CPT/HCPCS: 77063; 77067